=== PATIENT | male | born 1985 | race Caucasian/White ===

== ENCOUNTER 2016-12-13 14:08 | Emergency (ER) | payer SELFPAY ==
[2016-12-13] MEDS ORDERED: KETOROLAC TROMETHAMINE 60 MG/2 ML SDV IM ONE (14:37)
--- NOTE | 2016-12-13 14:40 | ER Document Report ---
ED Neck/Back Problem - General Chief Complaint: Back Injury Stated Complaint: BACK PAIN Time Seen by Provider: 12/13/16 14:32 TRAVEL OUTSIDE OF THE [place] IN LAST 30 DAYS: No - HPI Patient complains to provider of: Pain, Lower back Onset: Just prior to arrival Where: Outdoors Onset: Sudden Timing: Still present Quality of pain: Achy Severity: Moderate Pain Level: 3 Context: Turning Recent injury: Yes Associated symptoms: Numbness/tingling, Radiation to leg Exacerbated by: Movement of trunk Relieved by: Nothing Similar symptoms previously: Yes Recently seen / treated by doctor: No Notes: Patient is a 31-year-old male presenting to the emergency room via EMS today for complaints of low back pain, patient reports a history of falling from a tree when he was 18 years old injuring his low back, he has not really had any problems with his back until today, he did go to the store and bought several cases of bottled water, then he was at the car wash cleaning out his car, he twisted in a certain way and then had sharp shooting pain in his low back radiating down the legs with the inability to move his legs or feel his legs for a few minutes afterwards, patient reports his symptoms are similar to the back pain he had when he fell out of the tree at age 18, the numbness and tingling has subsided and he is now able to move his extremities, but does complain of pain in his low back when moving his legs, no bowel or bladder dysfunction, no numbness or tingling in the groin area - Related Data Allergies/Adverse Reactions: Coconut * [Coconut] Adverse Reaction (Severe, Verified 12/13/16 14:19) Anaphylaxis Past Medical History - General Information source: Patient - Social History Smoking Status: Unknown if Ever Smoked Chew tobacco use (# tins/day): No Frequency of alcohol use: None Drug Abuse: None Family History: CAD, CVA - Past Medical History Cardiac Medical History: Reports: Hx Hypertension - Off and on, currently no medications Renal/ Medical History: Denies: Hx Peritoneal Dialysis Psychiatric Medical History: Reports: Hx Attention Deficit Hyperactivity Disorder - When younger, no medications now Past Surgical History: Reports: Hx Genitourinary Surgery - vasectomy, Hx Oral Surgery, Hx Orthopedic Surgery - right knee - Immunizations Immunizations up to date: Yes Hx Diphtheria, Pertussis, Tetanus Vaccination: Yes - 2011 Review of Systems - Review of Systems Constitutional: No symptoms reported EENT: No symptoms reported Cardiovascular: No symptoms reported Respiratory: No symptoms reported Gastrointestinal: No symptoms reported Genitourinary: No symptoms reported Male Genitourinary: No symptoms reported Musculoskeletal: See HPI Skin: No symptoms reported Hematologic/Lymphatic: No symptoms reported Neurological/Psychological: See HPI -: Yes All other systems reviewed and negative Physical Exam - Vital signs Vitals: Temp Pulse Resp BP Pulse Ox 98.6 F 83 16 120/84 97 12/13/16 14:28 12/13/16 14:28 12/13/16 14:28 12/13/16 14:28 12/13/16 14:28 Interpretation: Normal - General General appearance: Appears well, Alert - HEENT Head: Normocephalic, Atraumatic Eyes: Normal Pupils: PERRL - Respiratory Respiratory status: No respiratory distress Chest status: Nontender Breath sounds: Normal Chest palpation: Normal - Cardiovascular Rhythm: Regular Heart sounds: Normal auscultation Murmur: No - Abdominal Inspection: Normal Distension: No distension Bowel sounds: Normal Tenderness: Nontender Organomegaly: No organomegaly - Back Back: Normal, Tender - lumbar paraspinal muscle tenderness, positive pain with straight leg raise - Extremities General upper extremity: Normal inspection, Nontender, Normal color, Normal ROM , Normal temperature General lower extremity: Normal inspection, Nontender, Normal color, Normal ROM , Normal temperature, Normal weight bearing. No: Fab's sign - Neurological Neuro grossly intact: Yes Cognition: Normal Orientation: AAOx4 [place] Coma Scale Eye Opening: Spontaneous [place] Coma Scale Verbal: Oriented [place] Coma Scale Motor: Obeys Commands [place] Coma Scale Total: 15 Speech: Normal Motor strength normal: LUE, RUE, LLE, RLE Sensory: Normal - Psychological Associated symptoms: Normal affect, Normal mood - Skin Skin Temperature: Warm Skin Moisture: Dry Skin Color: Normal Course - Re-evaluation Re-evalutation: 12/13/16 16:15 EEG findings discussed with patient and spouse at bedside which are unremarkable , symptoms are consistent with lumbar strain, patient will be discharged with pain meds and muscle relaxers, advised to follow-up with a primary care provider or return if symptoms worsen, patient acknowledges understanding and agreement with this plan - Vital Signs Vital signs: Temp Pulse Resp BP Pulse Ox 98.6 F 83 16 120/84 97 12/13/16 14:28 12/13/16 14:28 12/13/16 14:28 12/13/16 14:28 12/13/16 14:28 - Diagnostic Test Radiology reviewed: Image reviewed, Reports reviewed Discharge - Discharge Clinical Impression: Lumbar strain Qualifiers: Encounter type: initial encounter Qualified Code(s): S39.012A - Strain of muscle, fascia and tendon of lower back, initial encounter Condition: Stable Disposition: HOME, SELF-CARE Instructions: Ice Packs ([facility]), Low Back Pain ([facility]), Muscle Strain ([facility]), Oral Narcotic Medication ([facility]), Warm Packs ([facility]), Muscle Relaxers ([facility]) Additional Instructions: Follow up with your primary care provider in one to 2 days. Return to the emergency room immediately if symptoms worsen or any additional concerns. Prescriptions: Cyclobenzaprine HCl [Flexeril 10 Mg Tablet] 10 mg PO TID #10 tablet Oxycodone HCl/Acetaminophen [Percocet 5-325 mg Tablet] 1 - 2 tab PO ASDIR PRN # 15 tablet PRN Reason:
--- NOTE | 2016-12-13 15:42 | RADIOLOGY REPORT (SQ) ---
EXAM DESCRIPTION: L SPINE WHOLE COMPLETED DATE/TIME: 12/13/2016 3:25 pm REASON FOR STUDY: pain COMPARISON: None. NUMBER OF VIEWS: Five views including obliques. TECHNIQUE: AP, lateral, oblique, and sacral radiographic images acquired of the lumbar spine. LIMITATIONS: None. FINDINGS: MINERALIZATION: Normal. SEGMENTATION: Normal. No transitional anatomy. ALIGNMENT: Normal. VERTEBRAE: Maintained height. No fracture or worrisome bone lesion. DISCS: Preserved height. No significant osteophytes or end plate irregularity. POSTERIOR ELEMENTS: Pedicles and facets are intact. No pars defect or posterior arch defects. HARDWARE: None in the spine. PARASPINAL SOFT TISSUES: Normal. PELVIS: Intact as visualized. No fractures or worrisome bone lesions. SI joints intact. OTHER: No other significant finding. IMPRESSION: NORMAL 5 VIEW LUMBAR SPINE. TECHNICAL DOCUMENTATION: JOB ID: [id number] [employer]- All Rights Reserved
[2016-12-13] MEDS ORDERED: MORPHINE SULFATE 10 MG/ML INJ IM ONE (16:14)
[2016-12-13 17:12] VITALS: BP 122/62
== END 2016-12-13 17:09 | disposition home or self-care (01) ==
LOC: ER 14:08
DX: S39.012A Strain of muscle, fascia and tendon of lower back, initial encounter (principal); X50.1XXA Overexertion from prolonged static or awkward postures, initial encounter; Y93.89 Activity, other specified; Y92.59 Other trade areas as the place of occurrence of the external cause; I10 Essential (primary) hypertension
CPT/HCPCS: 99283; 96372; 72110; J1885; J2270

== ENCOUNTER 2020-03-31 03:38 | Emergency (ER) | payer SELFPAY ==
--- NOTE | 2020-03-31 04:17 | ER Document Report ---
ED General - General Chief Complaint: Chest Pain Stated Complaint: CHEST PAIN Time Seen by Provider: 03/31/20 04:05 Primary Care Provider: JERRELL CRUZ PA [Primary Care Provider] - Follow up as needed TRAVEL OUTSIDE OF THE [place] IN LAST 30 DAYS: No - HPI Notes: Patient is a 35-year-old male with no medical history who presents with left- sided chest pain that began around 2:30 AM this morning. Patient states the pain started in his left lower neck traveled down his chest and into his left arm. Patient states the pain continued to worsen which caused him to become concerned and called EMS. Patient reports shortness of breath and increased pain with deep respirations. Patient states the pain came on after moving heavy 250lb boxes once he had laid down. Patient states he has also been renovating a bathroom this week and doing a lot of heavy lifting and work with that. Patient denies palpitations, fever, abdominal pain, nausea, vomiting, diarrhea. Patient reports his father had his first heart attack at the age of 45. Patient reports occasional alcohol use but denies tobacco and recreational drug use. - Related Data Allergies/Adverse Reactions: Coconut * [Coconut] Adverse Reaction (Severe, Verified 12/13/16 14:19) Anaphylaxis Past Medical History - General Information source: Patient - Social History Smoking Status: Never Smoker Chew tobacco use (# tins/day): No Frequency of alcohol use: Occasional Drug Abuse: None Family History: CAD, CVA Patient has homicidal ideation: No - Past Medical History Cardiac Medical History: Reports: Hx Hypertension - Off and on, currently no medications Renal/ Medical History: Denies: Hx Peritoneal Dialysis Psychiatric Medical History: Reports: Hx Attention Deficit Hyperactivity Disorder - When younger, no medications now Past Surgical History: Reports: Hx Genitourinary Surgery - vasectomy, Hx Oral Surgery, Hx Orthopedic Surgery - right knee - Immunizations Immunizations up to date: Yes Hx Diphtheria, Pertussis, Tetanus Vaccination: Yes - 2011 Review of Systems - Review of Systems Constitutional: No symptoms reported EENT: No symptoms reported Cardiovascular: See HPI Respiratory: See HPI Gastrointestinal: No symptoms reported Genitourinary: No symptoms reported Male Genitourinary: No symptoms reported Musculoskeletal: No symptoms reported Skin: No symptoms reported Hematologic/Lymphatic: No symptoms reported Neurological/Psychological: No symptoms reported Physical Exam - Vital signs Vitals: Resp Pulse Ox 19 98 12/25/20 03:40 03/31/20 03:40 - Notes Notes: PHYSICAL EXAMINATION: VITALS: Vitals reviewed and within normal limits. GENERAL: Well-appearing, well-nourished and in no acute distress. HEAD: Atraumatic, normocephalic. EYES: Pupils equal, round, and reactive to light, extraocular movements intact, sclera anicteric, conjunctiva are normal. ENT: Nares patent. Moist mucous membranes. Oropharynx clear without exudates. NECK: Normal range of motion, supple without lymphadenopathy. LUNGS: Breath sounds clear to auscultation bilaterally and equal. No wheezes, rales, or rhonchi. HEART: Regular, rate, and rhythm without murmurs. CHEST WALL: Tenderness to palpation to the left upper chest. ABDOMEN: Soft, nontender, normoactive bowel sounds. No guarding, no rebound. No masses appreciated. EXTREMITIES: Normal range of motion, no pitting or edema. No cyanosis. NEUROLOGICAL: No focal neurological deficits. Moves all extremities spontaneously and on command. PSYCH: Normal mood, normal affect. SKIN: Warm, Dry, normal turgor, no rashes or lesions noted. Course - Re-evaluation Re-evalutation: Presentation of chest pain in an otherwise well appearing patient. Low clinical suspicion for ACS given clinical history, exam, EKG without ST elevations or depressions, and negative initial troponin. HEART score less than or equal to 3. PE also seems unlikely given clinical history, absence of tachycardia or dyspnea. Patient is PERC criteria negative. CXR without evidence of pneumothorax or pneumonia. No widened mediastinum. Aortic dissection also seems unlikely given history, symmetric pulses, CXR, and vitals. Chest pain reproducible on palpation. HEART Score: 1 Chest pain in a patient without evidence of cardiac or other serious etiology on workup today. I discussed with patient that, based on their age, risk factors and emergency department testing today, the likelihood that their symptoms are related to a heart attack is very low (estimated risk of heart attack or over the next 30 days of less than 1%). The patient demonstrates decision making capacity and has verbalized an understanding of these risks to me. Based on this, the patient has chosen to follow-up as an outpatient. Usual chest pain return precautions reviewed. The patient states understanding and agreement with this plan. - Vital Signs Vital signs: Temp Pulse Resp BP Pulse Ox 17 98 03/31/20 07:00 03/31/20 07:00 - Laboratory Results Result Diagrams: 03/31/20 03:50 03/31/20 03:50 Critical Laboratory Results Reviewed: No Critical Results - Radiology Results Radiology Results Interpreted: Chest X-Ray 03/31/20 04:12 IMPRESSION: Clear lungs. Critical Radiology Results Reviewed: No Critical Results - EKG Interpretation by Me Additional EKG results interpreted by me: Sinus rhythm with a rate of 66. QTc 411. Normal axis. No T wave inversions or ST segment changes in consecutive leads. Discharge - Discharge Clinical Impression: Chest pain Qualifiers: Chest pain type: unspecified Qualified Code(s): R07.9 - Chest pain, unspecified Condition: Stable Disposition: HOME, SELF-CARE Additional Instructions: You were seen today for chest pain. The exact cause of your pain is unclear. However, based on your cardiac enzyme testing, chest x-ray, and EKG it does not appear that it is from an immediately life-threatening cause at this time. Although your testing here is normal is critical that you follow-up with your [facility] physician for continued evaluation of this chest pain and possible stress testing. I recommended you see your physician within the next 24-48 hours to be evaluated for consideration of a stress test. Please return to emergency department immediately if you have worsening of your chest pain, shortness of breath, vomiting, become unable to exert yourself due to pain or difficulty breathing, you pass out, or have any pain that radiates into your arms, jaw, or back. Please also return if you have any additional symptoms that are concerning to you. Referrals: JERRELL CRUZ PA [Primary Care Provider] - Follow up as needed
[2020-03-31 04:29] LABS: ABSOLUTE EOSINOPHILS # (AUTO) 0.1 10^3/uL (0.0-0.6); ABSOLUTE LYMPHOCYTES (AUTO) 3.1 10^3/uL (0.5-4.7); ABSOLUTE MONOCYTES (AUTO) 0.8 10^3/uL (0.1-1.4); ABSOLUTE NEUT (AUTO) 3.5 10^3/uL (1.7-8.2); BASOPHILS % (AUTO) 0.6 % (0-2); EOSINOPHILS % (AUTO) 1.8 % (0-6); HEMATOCRIT 42.7 % (37.9-51.0); HEMOGLOBIN 14.3 g/dL (13.5-17.0); LYMPHOCYTES % (AUTO) 40.8 % (13-45); MEAN CORPUSCULAR HEMOGLOBIN 28.9 pg (27.0-33.4); MEAN CORPUSCULAR HGB CONC 33.5 g/dL (32.0-36.0); MEAN CORPUSCULAR VOLUME 86 fl (80-97); MONOCYTES % (AUTO) 10.5 % (3-13); RED BLOOD COUNT 4.94 10^6/uL (4.35-5.55); SEGMENTED NEUTROPHILS % (AUTO) 46.3 % (42-78); TOTAL CELLS COUNTED % (AUTO) 100 %; WHITE BLOOD COUNT 7.5 10^3/uL (4.0-10.5)
[2020-03-31 04:54] LABS: ALBUMIN 4.3 g/dL (3.5-5.0); ALKALINE PHOSPHATASE 80 U/L (38-126); ANION GAP 10 (5-19); ASPARTATE AMINO TRANSFERASE 36 U/L (17-59); BILIRUBIN,DIRECT 0.2 mg/dL (0.0-0.4); BILIRUBIN,TOTAL 0.6 mg/dL (0.2-1.3); BLOOD UREA NITROGEN 15 mg/dL (7-20); CALCIUM 9.4 mg/dL (8.4-10.2); CARBON DIOXIDE 25 mmol/L (22-30); CHLORIDE 105 mmol/L (98-107); GLUCOSE 101 mg/dL (75-110); POTASSIUM 3.6 mmol/L (3.6-5.0); TOTAL PROTEIN 7.8 g/dL (6.3-8.2)
[2020-03-31 05:12] LABS: PLATELET COUNT 199 10^3/uL (150-450)
--- NOTE | 2020-03-31 06:00 | RADIOLOGY REPORT (SQ) ---
CLINICAL HISTORY: chest pain COMPARISON: None. TECHNIQUE: XR CHEST 1 VIEW 03/31/2020 4:12 AM [employer] FINDINGS: Cardiac silhouette is normal in size. Lungs are clear without consolidation, atelectasis, mass or edema. There is no pleural effusion. There is no pneumothorax. There are no acute osseous findings. IMPRESSION: Clear lungs.
--- NOTE | 2020-03-31 10:16 | EKG REPORT ---
SEVERITY:- NORMAL ECG - SINUS RHYTHM : Confirmed by: Mark Rangel MD 31-Mar-2020 10:15:37
== END 2020-03-31 07:42 | disposition home or self-care (01) ==
LOC: ER 03:38
DX: R07.9 Chest pain, unspecified (principal); M79.602 Pain in left arm; R06.02 Shortness of breath; I10 Essential (primary) hypertension; Z82.49 Family history of ischemic heart disease and other diseases of the circulatory system
CPT/HCPCS: 36415; 71045; 80053; 83735; 84484; 85025; 93005; 93010; 99285